=== PATIENT | male | born 1990 | race Caucasian/White ===

== ENCOUNTER 2021-03-27 11:21 | Day surgery (SDC) | payer OTHER ==
[~2021-03-27] VITALS: Ht 177.8 cm; Wt 89.3 kg
--- NOTE | 2021-03-27 12:18 | NUR ---
Ambulatory in Day Surgery History, Chart, Medications and Allergies reviewed before start of procedure. Lungs clear T/O to Auscultation. Patient confirms NPO status and agrees with scheduled surgery. Pre-Op teaching done. Pt verbalizes understanding. Patient States Post-Procedure ride home has been arranged.
[2021-03-27] MEDS ORDERED: CETI5 PO (12:22)
--- NOTE | 2021-03-27 17:40 | NUR ---
Patient up to Ambulate independently. Gait steady. Discharge instructions reviewed with patient. Patient verbalizes understanding. Copy given to patient to take home. Dressing to procedure site clean, dry, intact with no visible drainage, swelling, erythema or bruising noted. BRACE IN PLACE. CIRCULATION REMAINED INTACT THROUGHT OUT RECOVERY. Patient States Post-Procedure ride home has been arranged. Discharged via wheelchair to private car for ride home. ALL BELONINGS RETURNED. SENT PT HOME WITH ICE PACK.
== END 2021-03-27 22:50 | disposition home or self-care (01) ==
LOC: ORSCMMR 11:21
PROVIDERS: Orthopaedic Surgery
PROC: 0LM40ZZ Reattachment of Left Upper Arm Tendon, Open Approach (ICD-10-PCS; principal; 2021-03-27 12:30)
DX: S29.011A Strain of muscle and tendon of front wall of thorax, initial encounter (principal)
CPT/HCPCS: A9270; J0171; J0690; J0696; J0735; J1100; J1200; J1885; J2250; J2405; J2704; J2795; J3010; J7120